=== PATIENT | male | born 2000 | race Caucasian/White ===

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

== ENCOUNTER 2021-11-14 20:30 | Inpatient (IN) | payer OTHER, MEDICAID, SELFPAY ==
[2021-11-14 20:35] VITALS: BP 112/69; PULSE 88; RESP 20; TEMP 36.3; O2SAT 97; BMI 17.9
--- NOTE | 2021-11-14 20:42 | DI.RAD.S_ITS ---
PROCEDURE: XR CHEST 2V INDICATIONS: Shooting pains on inspiration TECHNIQUE: 2 views of the chest were acquired. COMPARISON: [facility], , XR CHEST 1V, 10/02/2019, 23:36. FINDINGS: Surgical changes and devices: None. Lungs and pleura: There is a moderate-sized right pneumothorax measuring up to 5.2 cm at the apex. The lungs are clear. No left pneumothorax. No pleural effusions. Mediastinum: There is mild leftward mediastinal shift. Heart size is normal. Bones and chest wall: No displaced fractures identified. No suspicious bony abnormalities. Soft tissues appear unremarkable. IMPRESSION: 1. Moderate right pneumothorax with mild leftward shift of the mediastinum suggestive of developing tension. Findings discussed with Dr. Salas on 11/14/2021 at 9:10 p.m.. Dictated by: Antolin Montoya M.D. on 11/14/2021 at 21:09 Approved by: Antolin Montoya M.D. on 11/14/2021 at 21:13
--- NOTE | 2021-11-14 20:57 | ED.CHESTPAIN ---
HPI - Chest Pain General Chief Complaint: Chest Pain Stated Complaint: rt sided pain with breathing Time Seen by Provider: 11/14/21 20:42 Source: patient Mode of arrival: Ambulatory Limitations: no limitations Limitations: no limitations Related Data Previous Rx's Medication Instructions Recorded lorazepam 0.5 mg tablet (Ativan) 0.5 mg PO BID PRN anxiety #10 tabs 10/03/19 Allergies Allergy/AdvReac Type Severity Reaction Status Date / Time Penicillins Allergy Severe Hives Verified 04/16/19 13:34 Review of Systems Review of Systems ROS Unobtainable: All systems reviewed & are unremarkable except as noted in HPI and below Patient History Medical History Depression Social History Smoking Status: Current every day smoker Smoking Status: Current every day smoker alcohol intake frequency: 0-2 drinks per day Substance Use Type: marijuana Exam Initial Vital Signs Initial Vital Signs: Vital Signs Temperature 97.4 F L 11/14/21 20:35 Pulse Rate 88 11/14/21 20:35 Respiratory Rate 20 11/14/21 20:35 Blood Pressure 112/69 11/14/21 20:35 Pulse Oximetry 97 11/14/21 20:35 Oxygen Delivery Method 11/14/21 20:35 Course Orders Ordered: ED Orders 11/14/21 20:42 Chest [XR chest 2V] Stat Vital Signs Vital signs: Vital Signs - 8 hr 11/14/21 20:35 Temperature 97.4 F L Pulse Rate 88 Respiratory Rate 20 Blood Pressure 112/69 Pulse Oximetry 97 Oxygen Delivery Method Room Air Discharge Plan Departure Prescriptions: No Action lorazepam [Ativan] 0.5 mg tablet 0.5 mg PO BID PRN (Reason: anxiety) Qty: 10 0RF
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
[2021-11-14 21:36] LABS: COVID19 -Nasal RAPID Negative (Negative)
--- NOTE | 2021-11-14 21:41 | PC.NURSE ---
Per provider, put patient on 15L NRB for management of pneumo.
[2021-11-14] MEDS: KETOROLAC 30 MG/ML VIAL 15 MG IV (21:44)
[2021-11-14 21:48] LABS: Add Manual Diff / Slide Review NO; Basophils Absolute Auto 200 /uL (0-100); Basophils Percent Auto 1.9 % (0-2); Eosinophils Absolute Auto 300 /uL (0-450); Eosinophils Percent Auto 3.6 % (2-4); Hematocrit 41.5 % (41-53); Hemoglobin 14.2 g/dL (13.5-17.5); Lymphocytes Absolute Auto 1400 /uL (1100-4500); Lymphocytes Percent Auto 16.2 % (25-40); Mean Corpuscular HGB Conc 34.2 % (30-36); Mean Corpuscular Volume 87.8 fL (80-100); Monocytes Absolute Auto 600 /uL (0-900); Monocytes Percent Auto 6.8 % (3-14); Neutrophils Absolute Auto 6000 /uL (1500-7000); Neutrophils Percent Auto 71.5 % (50-75); Platelet Count 221 X10^3/uL (150-400); Red Blood Cell Count 4.72 X10^6/uL (4.5-5.9); Red Cell Distribution Width 12.9 % (11.6-14.8); White Blood Cell Count 8.4 X10^3/uL (4.5-11.0)
[2021-11-14 21:56] LABS: Alanine Aminotransferase 10 IU/L (<50); Albumin 4.1 g/dL (3.5-5.0); Albumin Globulin Ratio 1.6 (1.0-2.8); Alkaline Phosphatase 65 U/L (38-126); Aspartate Aminotransferase 20 IU/L (17-59); BUN Creatinine Ratio 10.7 (6-22); Bilirubin Total 0.6 mg/dL (0.2-1.3); Blood Urea Nitrogen 8 mg/dL (9-20); Calcium 8.9 mg/dL (8.4-10.2); Carbon Dioxide 27 mmol/L (22-32); Chloride 105 mmol/L (98-107); Estimated Glomerular Filt Rate > 60 mL/min (>60); Globulin 2.6 g/dL (1.7-4.1); Glucose 139 mg/dL (70-100); HEMOLYSIS < 15 (0-50); Lipase 33 U/L (23-300); Potassium 3.9 mmol/L (3.4-5.1); Sodium 140 mmol/L (137-145); Total Protein 6.7 g/dL (6.3-8.2)
[2021-11-14 22:00] VITALS: BMI 16.8
[2021-11-14 22:15] VITALS: BP 117/69; PULSE 50; RESP 17; TEMP 36.8; O2SAT 99
[2021-11-14 22:20] VITALS: O2SAT 98
[2021-11-14] MEDS: GABAPENTIN 300 MG CAPSULE PO (22:21)
[2021-11-14] MEDS: OXYCODONE IR 5 MG TABLET PO (22:21)
[2021-11-14] MEDS: ACETAMINOPHEN 325 MG TABLET 650 MG PO (23:17)
[2021-11-15] VITALS (19 sets, daily range): BP systolic 88–103; BP diastolic 48–66; PULSE 44–92; RESP 9–18; TEMP 35.8–36.6; O2SAT 91–100
[2021-11-15] MEDS: KETOROLAC 30 MG/ML VIAL 15 MG IV ×4 (03:22→21:38)
[2021-11-15] MEDS: OXYCODONE IR 5 MG TABLET PO ×4 (03:29→23:45)
--- NOTE | 2021-11-15 05:30 | DI.RAD.S_ITS ---
PROCEDURE: XR CHEST 1V INDICATIONS: ptx TECHNIQUE: One view of the chest was acquired. COMPARISON: [facility], CR, XR CHEST 2V, 11/14/2021, 20:58. FINDINGS: Surgical changes and devices: None. Lungs and pleura: Large right-sided pneumothorax, increased compared to the prior study. No mediastinal shift to indicate tension. Left lung is clear. Medial right lung is atelectatic. Mediastinum: Mediastinal contours appear normal. Heart size is normal. Bones and chest wall: No suspicious bony lesions. Overlying soft tissues appear unremarkable. IMPRESSION: 1. Increased size of large right pneumothorax. No tension. 2. Final interpretation is concordant with preliminary report. 3. Nurse and hospitalist notified per technologist. Dictated by: Elyssa Juarez M.D. on 11/15/2021 at 8:56 Approved by: Elyssa Juarez M.D. on 11/15/2021 at 8:59
[2021-11-15] MEDS: GABAPENTIN 300 MG CAPSULE PO ×3 (05:58→21:39)
[2021-11-15] MEDS: ACETAMINOPHEN 325 MG TABLET 650 MG PO ×3 (05:58→23:46)
--- NOTE | 2021-11-15 07:08 | PC.NURSE ---
Per concrete technician, chest Xray looks worse, Dr Maxwell notified.
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
--- NOTE | 2021-11-15 10:09 | SUR.HOLD ---
called primary nurse to obtain update regarding patient. Per MILLIE Montero, patient has HR in the 50s and BP is 90/40s; patient has had little to no urine output. Notified Dr. Maxwell of events. Bolus of saline for one liter ordered as well as a bladder scan. Orders placed and relayed to inpatient nurse.
[2021-11-15] MEDS: LACTATED RINGERS 1,000 ML 1000 ML IV (10:40)
[2021-11-15] MEDS: MIDAZOLAM 5 MG/5 ML VIAL 2 MG IV (11:40)
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
[2021-11-15] MEDS: LIDOCAINE 1% (PF) 5 ML INJ (11:43)
[2021-11-15] MEDS: fentaNYL 100 MCG/2 ML INJ IV (11:46)
--- NOTE | 2021-11-15 12:00 | DI.RAD.S_ITS ---
PROCEDURE: XR CHEST 1V INDICATIONS: chest tube right TECHNIQUE: One view of the chest was acquired. COMPARISON: [facility], CT, CT ANGIO CHEST ABDOMEN PELVIS, 09/06/2021, 1:10. [facility], CR, XR CHEST 1 VIEW, 09/05/2021, 21:36. [facility], CR, XR CHEST 2V, 11/14/2021, 20:58. [facility], CR, XR CHEST 1V, 11/15/2021, 6:51. FINDINGS: Surgical changes and devices: There is a right-sided pleural drain placed. Lungs and pleura: A right-sided pneumothorax is seen, which is slightly improved compared to the prior examination. Mediastinum: Mediastinal contours appear normal. Heart size is normal. Bones and chest wall: No suspicious bony lesions. Overlying soft tissues appear unremarkable. IMPRESSION: Interval placement of a right-sided pleural drain, with slightly improved right-sided pneumothorax. Dictated by: Ari Chapman M.D. on 11/15/2021 at 11:31 Approved by: Ari Chapman M.D. on 11/15/2021 at 11:32
--- NOTE | 2021-11-15 12:03 | PM.OP.1 ---
Operative Date/Time/Diagnoses Date of procedure: 11/15/21 Time of procedure: 12:03 Pre-op diagnosis: Spontaneous right pneumothorax Post-op diagnosis: same Procedure & Clinicians Procedure: Right-sided Jason tube Same procedure as scheduled: Yes Indications: Spontaneous right pneumothorax Surgeon: Alina Maxwell Anesthesia Type: Sedation Operative Notes Findings: Prep diagnosis: Right-sided spontaneous pneumothorax. Postop diagnosis: Same Procedure: Right-sided pigtail chest tube ?Jason? Surgeon: Jordyn Maxwell MD Anesthetic: Local, fentanyl 100 mcg, Versed 3 mg Findings: Normal anatomy, thin young male Procedure: Patient placed in a supine position. Prepped and draped in sterile fashion to expose his right lateral chest wall. Local anesthetic was used to inject along the 5th intercostal space. I then tunneled up to the 4th intercostal space and with the hollow needle was able to access the chest cavity withdrawing air at the time of entry. A wire was placed and Seldinger technique was used to carry out the placement of a pigtail catheter into the right chest wall. This was immediately hooked to suction. Was then covered with the sterile dressings and sutured to the skin prior to that with the 3-0 silk suture. Dressings were placed and patient was awaken, taken to recovery room in stable condition. Specimen: None Blood loss: 2 mL Applied: device(s) (Jason pigtail catheter) Estimated Blood Loss (mL): 2 Blood products transfused: none Procedure in detail: See findings Post-operative Condition: stable Disposition: PACU
--- NOTE | 2021-11-15 12:05 | PC.NURSE ---
Pt VSS, afebrile, HR elder 40's-50's this a.m. and overnight. Pt soundly sleeping but easily awakened,moaning and nodding he is ok. He is on Non Rebreather 15 L , 100% 02 saturation. He initially denies pain and reports he feel much better than the previous day, however with movement his pain to R side of chest increases. He had not voided overnight, and bladder scan revealed 550cc. He was able to void 650 cc dark yellow colored urine. LR one liter bolus administered per MD orders. Patient transported via w/ch to preop.
--- NOTE | 2021-11-15 12:21 | SUR.OPER ---
no anesthesia during procedure [facility] would not allow to save without anesthesia in time. Please see conscious sedation work flow.
--- NOTE | 2021-11-15 17:07 | PC.NURSE ---
Pt back from CT insertion procedure at 1250, initially sleepy and wanting to sleep about two hours but awakening yelling out in pain. Reports 9/[address] insertion site, and difficult to assess lung sounds as he does states it is painful to take deep inspirations. He is given prn and scheduled pain medications with good effect, falling back to sleep. He has a poor appetite without much intake today.VSS, with soft BP's and HR 50's, 02 saturation remains 96-98% on RA.
--- NOTE | 2021-11-15 21:57 | DI.RAD.S_ITS ---
PROCEDURE: XR CHEST 1V INDICATIONS: chest tube placement TECHNIQUE: One view of the chest was acquired. COMPARISON: [facility], CT, CT ANGIO CHEST ABDOMEN PELVIS, 09/06/2021, 1:10. [facility], CR, XR CHEST 2V, 11/14/2021, 20:58. [facility], CR, XR CHEST 1V, 11/15/2021, 6:51. [facility], CR, XR CHEST 1V, 11/15/2021, 12:07. FINDINGS: Surgical changes and devices: There is a right-sided pleural drain. Lungs and pleura: No remaining pneumothorax is seen on this study. The lungs appear clear. Mediastinum: Mediastinal contours appear normal. Heart size is normal. Bones and chest wall: No suspicious bony lesions. Overlying soft tissues appear unremarkable. IMPRESSION: No remaining right-sided pneumothorax seen by plain film. Right-sided pleural drain again seen. Dictated by: Ari Chapman M.D. on 11/15/2021 at 21:50 Approved by: Ari Chapman M.D. on 11/15/2021 at 21:51
[2021-11-15] MEDS: ALPRAZolam 0.5 MG TABLET PO (22:13)
--- NOTE | 2021-11-15 22:16 | PC.NURSE ---
~2200 patient called out writhing in pain, saying he all of a sudden had sharp pain and can't lift his R arm from how bad the pain was in his right side. Chest tube patent, no leak, on continuous suction, serosanguinous drainage in container. Patient given all PRN's and scheduled medication and he still was c/o 10/[address] Maxwell called for update. Xanax and a STAT CXR ordered.
[2021-11-16] VITALS (8 sets, daily range): BP systolic 97–125; BP diastolic 53–73; PULSE 46–69; RESP 16–18; TEMP 36.4–36.8; O2SAT 96–99
[2021-11-16] MEDS: KETOROLAC 30 MG/ML VIAL 15 MG IV (03:02)
--- NOTE | 2021-11-16 05:00 | DI.RAD.S_ITS ---
PROCEDURE: XR CHEST 1V INDICATIONS: right chest tube TECHNIQUE: One view of the chest was acquired. COMPARISON: [facility], , XR CHEST 1V, 11/15/2021, 22:05. [facility], CR, XR CHEST 1V, 11/15/2021, 12:07. FINDINGS: Surgical changes and devices: Right pleural drain in place. Lungs and pleura: No significant pneumothorax. No pleural effusion. Lungs are clear. Mediastinum: Mediastinal contours appear normal. Heart size is normal. Bones and chest wall: No suspicious bony lesions. Overlying soft tissues appear unremarkable. IMPRESSION: Right chest tube in place. No appreciable pneumothorax. Dictated by: Estevan Morgan M.D. on 11/16/2021 at 7:16 Approved by: Esteavn Morgan M.D. on 11/16/2021 at 7:17
[2021-11-16] MEDS: GABAPENTIN 300 MG CAPSULE PO ×3 (05:34→21:43)
[2021-11-16] MEDS: OXYCODONE IR 5 MG TABLET PO ×4 (05:34→21:43)
[2021-11-16] MEDS: ACETAMINOPHEN 325 MG TABLET 650 MG PO ×4 (05:34→23:17)
--- NOTE | 2021-11-16 10:11 | PM.PN.1 ---
Subjective Subjective Date Patient Seen: 11/16/21 Time Patient Seen: 10:11 Interval history: Sleeping, not interested in waking up. Exam Vital Signs (past 8 hours): - 11/16/21 03:13 11/16/21 08:10 Temperature 97.5 F L 97.9 F Pulse Rate 50 L 50 L Respiratory Rate 18 16 Blood Pressure 97/53 L 102/59 L Pulse Oximetry 96 97 Oxygen Flow Rate 0 0 Oxygen Delivery Method Room Air Oxygen Flow Rate 0 Const General: comfortable Nutritional Appearance: thin HENMT Head: normocephalic and atraumatic Neck Neck: trachea midline Chest Chest: normal inspection of the chest Other: right sided chest tube on suction. Resp Effort & Inspection: normal respiratory effort and able to speak in complete sentences Cardio Rate: bradycardic Rhythm: regular rhythm GI Inspection: normal to inspection Palpation: soft Skin General: turgor normal Extrem Right upper extremity: normal to inspection Objective Labs Result Diagrams: 11/14/21 21:37 11/14/21 21:37 [facility] Medical History Depression Social History household members: none Smoking Status: Current every day smoker alcohol intake: former Assessment & Plan Assessment & Plan narrative: Spontaneous Right PTX responded to chest tube placement. Plan: Remove suction and repeat CXR either later today or in am for potential chest tube removal. social work for homelessness COVID-19 COVID-19 status: Negative Time Spent With Patient Critical Care time: I spent a total of [] minutes of critical care time on this patient's care today; this time is exclusive of procedural time. Quality VTE Deep Vein Thrombosis/Pulmonary Embolism Present on Admission: No
--- NOTE | 2021-11-16 13:13 | CM.DPNOTE ---
DCP Note Brief visit this morning at patient's bedside, patient pleasant but doesn't open his eyes Patient states he will drive himself to his friends house in [facility], states he doesn't have access to food routinely. Strongly encouraged patient to apply for food stamps Patient denies ETOH and illicit drug use, denies needs from this SURVEY COORDINATOR JW
[2021-11-16] MEDS: NICOTINE 21 MG PATCH TOP (13:19)
[2021-11-16] MEDS: NAPROXEN 250 MG TABLET 500 MG PO (16:34)
[2021-11-16] MEDS: ALPRAZolam 0.5 MG TABLET PO (23:17)
[2021-11-17] MEDS: ACETAMINOPHEN 325 MG TABLET 650 MG PO (06:28)
[2021-11-17] MEDS: GABAPENTIN 300 MG CAPSULE PO (06:28)
[2021-11-17 07:54] VITALS: BP 98/60; PULSE 58; RESP 16; TEMP 36.2; O2SAT 100
[2021-11-17 09:09] VITALS: O2SAT 100
--- NOTE | 2021-11-17 09:59 | DI.RAD.S_ITS ---
PROCEDURE: XR CHEST 1V INDICATIONS: chest tube removed TECHNIQUE: One view of the chest was acquired. COMPARISON: [facility], CR, XR CHEST 1V, 11/16/2021, 6:41. FINDINGS: Surgical changes and devices: Right-sided pigtail pleural drain has been removed. No recurrent or residual pneumothorax. Lungs and pleura: Lungs are clear. No pleural effusions or pneumothorax. Mediastinum: Mediastinal contours appear normal. Heart size is normal. Bones and chest wall: No suspicious bony lesions. Overlying soft tissues appear unremarkable. IMPRESSION: No acute cardiopulmonary findings. No pneumothorax. Approved by: Cruz Fernandez M.D. on 11/17/2021 at 10:38
--- NOTE | 2021-11-17 09:59 | PM.PN.1 ---
Subjective Subjective Date Patient Seen: 11/17/21 Time Patient Seen: 09:59 Interval history: No issues over night. Exam Vital Signs (past 8 hours): - 11/17/21 07:54 11/17/21 09:09 Temperature 97.1 F L Pulse Rate 58 L Respiratory Rate 16 Blood Pressure 98/60 Pulse Oximetry 100 100 Oxygen Delivery Method Room Air Oxygen Flow Rate 0 Oxygen Delivery Method Room Air Oxygen Flow Rate 0 Narrative Exam Narrative: No respiratory distress, chest tube back to wall suction. Objective Labs Result Diagrams: 11/14/21 21:37 11/14/21 21:37 [facility] Medical History Depression Social History household members: none Smoking Status: Current every day smoker alcohol intake: former Assessment & Plan Assessment & Plan narrative: Chest tube removed. will repeat CXR and if appropriate, discharge today. COVID-19 COVID-19 status: Negative Time Spent With Patient Critical Care time: I spent a total of [] minutes of critical care time on this patient's care today; this time is exclusive of procedural time. Quality VTE Deep Vein Thrombosis/Pulmonary Embolism Present on Admission: No
[2021-11-17] MEDS: NICOTINE 21 MG PATCH TOP (10:03)
[2021-11-17] MEDS: NAPROXEN 250 MG TABLET 500 MG PO (10:04)
--- NOTE | 2021-11-17 10:44 | PC.NURSE ---
Dr. Maxwell in room, chest tube removed. Patient tolerated well. Patient happy to be up and mobile in room. Aware that we are now awaiting results of what chest xray shows before new plan is set. Patient agreeable to plan. Patient up to edge of bed, eating snack. Got dressed without help from staff.
--- NOTE | 2021-11-17 11:51 | P.DS_ITS ---
History of Present Illness History of Present Illness Date Patient Seen: 11/17/21 Time Patient Seen: 11:51 Chief complaint: rt sided pain with breathing Narrative: Acute onset chest pain yesterday. Did not improve over the day and presented to ED. CXR confirms PTX of right lung. On prior episode associated with trauma. PTX increased in size overnight w/o chest tube, He is o/w stable. Chest tube placed, 24hours of suction prior to removal. No Ptx on CXR after removal ok to discharge. No contact sports, heavy lifting (>15lbs) for 2 weeks, stop smoking anything. Discharge Providers Provider Date of admission: 11/14/21 21:23 Discharge Date: 11/17/21 Consults: 11/14/21 21:30 Consult to Respiratory Therapy Evaluate & Treat Comment: pulmonary toilet Physician Instructions: Evaluate and treat Discharge provider: Alina Maxwell MD Summary Hospital Course Discharge Diagnosis: Spontaneous right pneumothorax Hospital Course: Attempted conservative management that failed. Chest tube placed with successful resolution of PTX Status at Discharge Cognitive/behavioral status at discharge: at baseline, oriented Functional status at discharge: independent ambulation Overall status at discharge: patient is progressing back to baseline Time Spent with Patient Time spent: Greater than 30 minutes Exam Vital Signs (past 8 hours): - 11/17/21 07:54 11/17/21 09:09 Temperature 97.1 F L Pulse Rate 58 L Respiratory Rate 16 Blood Pressure 98/60 Pulse Oximetry 100 100 Oxygen Delivery Method Room Air Oxygen Flow Rate 0 Oxygen Delivery Method Room Air Oxygen Flow Rate 0 Narrative Exam Narrative: wound has no infection. No PTX on CXR after removal of chest tube. Objective Labs Result Diagrams: 11/14/21 21:37 11/14/21 21:37 [facility] Medical History Depression Social History household members: none Smoking Status: Current every day smoker alcohol intake: former Discharge Assessment & Plan Assessment and Plan Assessment: spontaneous PTX resolved with chest tube Plan of Treatment: No heavy lifting/straining/or contact sports for 2 weeks. Follow up prn. return to ER if pain recurs. Discharge Plan Discharge Plan Patient Disposition: Home Discharge orders & Medications Prescriptions: New acetaminophen 325 mg Tablet 650 mg PO Q6HR Qty: 30 0RF naproxen 250 mg Tablet 500 mg PO BIDWM Qty: 60 0RF oxycodone 5 mg Tablet 5 mg PO Q4HR PRN (Reason: Pain, Severe (7-10)) Qty: 10 0RF Diet/Activity/Treatments Diet: Diet as Tolerated Activity: no heavy lifting (>15 lbs) for 2 weeks. Skin/Wound/Dressing Care Report to your healthcare provider any signs of infection, such as:: increased pain Dressing: change in 48 hours. Visit Report/Discharge Packet Instructions: Pneumothorax, [facility]: Wound Care Stand Alone Forms: Surgery Discharge Quality VTE Deep Vein Thrombosis/Pulmonary Embolism Present on Admission: No
--- NOTE | 2021-11-18 10:12 | SUR.PHASEI ---
no anesthesia involved for this case
== END 2021-11-17 13:04 | disposition home or self-care (01) | DRG 143 ==
LOC: ED 20:42 → AC 22:05
PROVIDERS: Admitting Provider Surgery; Emergency Provider Emergency Medicine; Visit Provider Surgery
PROC: 0W9930Z Drainage of Right Pleural Cavity with Drainage Device, Percutaneous Approach (ICD-10-PCS; CPT 32551; principal; 2021-11-15 13:30)
DX: J93.83 Other pneumothorax (principal); F17.210 Nicotine dependence, cigarettes, uncomplicated; Z59.02 Unsheltered homelessness; Z20.822 Contact with and (suspected) exposure to COVID-19
CPT/HCPCS: 32551; 36415; 71045; 71046; 80053; 83690; 85025; 87635; 94760; 99221; 99231; 99238; 99284; C9803; J1885; J2250; J3010

== ENCOUNTER 2021-12-18 14:10 | Inpatient (IN) | payer OTHER, MEDICAID, SELFPAY ==
[2021-12-18] VITALS (38 sets, daily range): BP systolic 105–137; BP diastolic 58–82; PULSE 53–122; RESP 12–59; TEMP 36.4–36.8; O2SAT 94–100; BMI 17.2
--- NOTE | 2021-12-18 14:30 | DI.RAD.S_ITS ---
PROCEDURE: XR CHEST 1V INDICATIONS: chest pain history of collapsed lung TECHNIQUE: One view of the chest was acquired. COMPARISON: [facility], CR, XR CHEST 1V, 11/17/2021, 10:22. [facility], CR, XR CHEST 1V, 11/16/2021, 6:41. FINDINGS: Surgical changes and devices: None. Lungs and pleura: Large right pneumothorax. Left lung is clear. Mediastinum: Mild right to left mediastinal shift. Heart size is normal. Bones and chest wall: No suspicious bony lesions. Overlying soft tissues appear unremarkable. IMPRESSION: Large right pneumothorax with mild [id number] mediastinal shift. Results discussed with Dr. Gomez by Dr. Stovall at 1535 hours on 12/18/2021. Dictated by: Jenaro Stovall M.D. on 12/18/2021 at 15:31 Approved by: Jenaro Stovall M.D. on 12/18/2021 at 15:37
--- NOTE | 2021-12-18 14:59 | DI.RAD.S_ITS ---
PROCEDURE: XR CHEST 1V INDICATIONS: post chest tube TECHNIQUE: One view of the chest was acquired. COMPARISON: [facility], CR, XR CHEST 1V, 12/18/2021, 14:27. [facility], CR, XR CHEST 1V, 11/17/2021, 10:22. FINDINGS: Surgical changes and devices: Interval placement of a right chest tube projecting over the right lower lung. Lungs and pleura: Significant interval decrease in size of the right pneumothorax post chest tube placement. Small right apical pneumothorax persists, approximately 21 millimeters pleural separation. Mediastinum: Interval decrease or resolution of right to left mediastinal shift. Heart size is normal. Bones and chest wall: No suspicious bony lesions. Overlying soft tissues appear unremarkable. IMPRESSION: Significant interval decrease in size of the right pneumothorax post chest tube placement. A small right apical pneumothorax persists. Dictated by: Jenaro Stovall M.D. on 12/18/2021 at 15:52 Approved by: Jenaro Stovall M.D. on 12/18/2021 at 15:56
[2021-12-18] MEDS: MIDAZOLAM 2 MG/2 ML VIAL IV (15:07)
[2021-12-18] MEDS: fentaNYL 100 MCG/2 ML INJ IV (15:07)
[2021-12-18 15:25] LABS: COVID19 -Nasal RAPID Negative (Negative)
[2021-12-18] MEDS: LIDOCAINE 2% W/EPI INJ 20 ML (15:37)
--- NOTE | 2021-12-18 15:39 | ED_ITS ---
HPI - Chest Pain General Chief Complaint: Chest Pain Stated Complaint: Hx collapsed lung 1mo ago, having similar symptoms Time Seen by Provider: 12/18/21 14:56 Source: patient Mode of arrival: Ambulatory Limitations: no limitations History of Present Illness HPI narrative: 21-year-old gentleman presents with acute right-sided chest pain feels exactly like his prior to spontaneous pneumothorax is. He was smoking a cigarette felt a pop increasing pain increasingly uncomfortable and increasingly short of breath. His last chest tube was on November 15. His 1st pneumothorax was treated conservatively. He reports no recent fevers, cough, chills, palpitations, abdominal pain, vomiting, diarrhea, lower extremity edema, orthopnea. Related Data Previous Rx's Medication Instructions Recorded acetaminophen 325 mg tablet 650 mg PO Q6HR #30 tabs 11/17/21 naproxen 250 mg tablet 500 mg PO BIDWM #60 tabs 11/17/21 oxycodone 5 mg tablet 5 mg PO Q4HR PRN Pain, Severe 11/17/21 (7-10) #10 tabs Allergies Allergy/AdvReac Type Severity Reaction Status Date / Time Penicillins Allergy Severe Hives Verified 04/16/19 13:34 Review of Systems Review of Systems Narrative: Remainder of complete review of systems is otherwise unremarkable except for that included in the HPI. Patient History Medical History (Updated 12/18/21 @ 18:23 by Daniela Gomez MD) Depression Pneumothorax Social History household members: none Smoking Status: Current every day smoker alcohol intake: former Smoking Status: Current every day smoker tobacco type: cigarettes alcohol intake frequency: 0-2 drinks per day Substance Use Type: does not use Exam Initial Vital Signs Initial Vital Signs: Vital Signs Temperature 98.3 F 12/18/21 14:27 Pulse Rate 122 H 12/18/21 14:27 Respiratory Rate 24 12/18/21 14:27 Blood Pressure 116/73 12/18/21 14:27 Pulse Oximetry 98 12/18/21 14:27 Oxygen Delivery Method 12/18/21 14:27 General: Healthy appearing, quite thin, in moderate pain but Able to give a complete and coherent history while speaking in complete sentences. Well- nourished well-developed HEENT: Moist mucous membranes, normal sclera with reactive pupils, Respiratory: Lungs decreased breath sounds on the right, no wheezing appreciated on the left. Cardiac: Tachycardic with regular rhythm no murmurs no bruits Abdomen: Soft, nontender, good bowel tones, no flank pain Skin: Warm and dry, no rashes Neurologic: Grossly neurologically intact with no obvious asymmetries or abnormalities Extremities: No trauma, well perfused Psych: Cooperative, appropriate insight and affect Procedures Chest Tube Chest Tube 1: Time of procedure: 15:42 Chest Tube Location: right and mid axillary line Chest Tube Prep: Yes sterile drapes applied (Chlorhexidine prep) Local Anesthetic: lidocaine 2% and with epi Amount of anesthesia used (mL): 4 Incision Made With: #11 blade Post Procedure: sutured to skin and sterile dressing applied Tube Drainage: other (Air) Post Procedure CXR?: Yes Patient Tolerated Procedure: Yes Progress: Jason pigtail catheter was used Procedural Sedation Time of procedure: 15:44 Time out performed: Yes Indication: other (Urgent right-sided chest tube placement with developing tension physiology) ASA Class: I Mallampati Airway Classification: Class I Time of Last PO Intake: 22:00 Preparation: court recording monitor applied, pulse oximeter, capnometry used, s upplemental O2 applied, suction/airway equipment at bedside and IV secured Fentanyl: IV Fentanyl dose (mcg): 50 Midazolam: IV Midazolam dose (mg): 2 Intraservice time/total sedation time (min): 20 ED Sedation Level: Moderate (Concious) Complications: none Course Orders Ordered: ED Orders 12/18/21 14:30 Chest [XR chest 1V] Stat 12/18/21 14:59 CXR [XR chest 1V] Stat 12/18/21 15:02 COVID19 -Nasal RAPID/Pre-Proc Stat 12/18/21 16:16 CT chest w con Stat Acetaminophen (Acetaminophen 325 Mg Tablet) 650 mg PO Q6HR PRN PRN Reason: pain Last Admin: 12/18/21 17:50 Dose: 650 mg Documented By: STARLA Alprazolam (Alprazolam 0.5 Mg Tablet) 0.5 mg PO Q6H PRN PRN Reason: Anxiety Celecoxib (Celecoxib 200 Mg Capsule) 200 mg PO BID DAVID Gabapentin (Gabapentin 300 Mg Capsule) 300 mg PO BEDTIME DAVID Heparin Sodium (Porcine) (Heparin 5,000 Unit/Ml Vial) 5,000 unit SUBCUT BID COUNT INCLUDES THE [facility] Oxycodone HCl (Oxycodone Er 10 Mg Tab) 5 mg PO Q3HR PRN PRN Reason: severe pain Last Admin: 12/18/21 17:50 Dose: 5 mg Documented By: STARLA Discontinued Medications Fentanyl (Fentanyl 100 Mcg/2 Ml Inj) 100 mcg IV NOW ONE Stop: 12/18/21 14:59 Last Admin: 12/18/21 15:07 Dose: 100 mcg Documented By: DRAGAN Midazolam HCl (Midazolam 2 Mg/2 Ml Vial) 2 mg IV NOW ONE Stop: 12/18/21 14:59 Last Admin: 12/18/21 15:07 Dose: 2 mg Documented By: DRAGAN Vital Signs Vital signs: Vital Signs - 8 hr 12/18/21 14:27 12/18/21 14:45 12/18/21 14:37 Temperature 98.3 F Pulse Rate 122 H 110 H 117 H Respiratory Rate 24 14 23 Blood Pressure 116/73 137/82 Pulse Oximetry 98 95 Oxygen Delivery Method Room Air Room Air 12/18/21 14:38 12/18/21 14:38 12/18/21 14:40 Temperature Pulse Rate 116 H 112 H Respiratory Rate 24 19 Blood Pressure 137/82 Pulse Oximetry 96 97 Oxygen Delivery Method 12/18/21 14:45 12/18/21 14:50 12/18/21 14:55 Temperature Pulse Rate 110 H 114 H 109 H Respiratory Rate 13 13 14 Blood Pressure Pulse Oximetry 98 98 98 Oxygen Delivery Method 12/18/21 15:00 12/18/21 15:05 12/18/21 15:10 Temperature Pulse Rate 118 H 115 H 103 H Respiratory Rate 21 16 27 H Blood Pressure Pulse Oximetry 98 98 99 Oxygen Delivery Method 12/18/21 15:15 12/18/21 15:15 12/18/21 15:20 Temperature Pulse Rate 105 H Respiratory Rate 59 H Blood Pressure 110/66 108/62 Pulse Oximetry 98 Oxygen Delivery Method 12/18/21 15:20 12/18/21 15:25 12/18/21 15:25 Temperature Pulse Rate 91 H 110 H Respiratory Rate 29 H 21 Blood Pressure 119/70 Pulse Oximetry 94 98 Oxygen Delivery Method 12/18/21 15:30 12/18/21 15:30 12/18/21 16:12 Temperature Pulse Rate 111 H 104 H Respiratory Rate 15 16 Blood Pressure 105/64 Pulse Oximetry 100 Oxygen Delivery Method 12/18/21 15:35 12/18/21 15:35 12/18/21 15:40 Temperature Pulse Rate 97 H Respiratory Rate 22 Blood Pressure 126/81 112/67 Pulse Oximetry 100 Oxygen Delivery Method 12/18/21 15:40 12/18/21 15:45 12/18/21 15:45 Temperature Pulse Rate 84 74 Respiratory Rate 18 15 Blood Pressure 117/69 Pulse Oximetry 100 98 Oxygen Delivery Method 12/18/21 15:50 12/18/21 15:50 12/18/21 15:55 Temperature Pulse Rate 74 Respiratory Rate 13 Blood Pressure 117/70 114/70 Pulse Oximetry 98 Oxygen Delivery Method 12/18/21 15:55 12/18/21 16:00 12/18/21 16:00 Temperature Pulse Rate 68 71 Respiratory Rate 12 13 Blood Pressure 119/73 Pulse Oximetry 100 100 Oxygen Delivery Method 12/18/21 16:05 12/18/21 16:05 12/18/21 16:10 Temperature Pulse Rate 72 Respiratory Rate 13 Blood Pressure 118/70 114/75 Pulse Oximetry 100 Oxygen Delivery Method 12/18/21 16:10 12/18/21 16:15 12/18/21 16:15 Temperature Pulse Rate 70 68 Respiratory Rate 12 13 Blood Pressure 109/69 Pulse Oximetry 100 100 Oxygen Delivery Method MDM - Chest Pain Lab Data Labs: Lab Results 12/18/21 Range/Units 15:02 SARS-CoV-2 (PCR) Negative (Negative) Imaging Data Chest x-ray pre and post chest tube: Radiologist's Impression: FINDINGS:? ? Surgical changes and devices:? None.? ? Lungs and pleura:? Large right pneumothorax.? Left lung is clear. ? Mediastinum:? Mild right to left mediastinal shift.? Heart size is normal.? ? Bones and chest wall:? No suspicious bony lesions.? Overlying soft tissues appear unremarkable.? ? IMPRESSION:? Large right pneumothorax with mild [id number] mediastinal shift. ? ? Results discussed with Dr. Gomez by Dr. Stovall at 1535 hours on 12/18/2021. ? Dictated by: Jenaro Stovall M.D. on 12/18/2021 at 15:31 ? ? MDM Narrative Medical decision making narrative: 21-year-old gentleman with recurrent spontaneous pneumothorax on the right side. He states he was smoking a cigarette felt a pop progressive pain and dyspnea. Initial chest x-ray shows a large pulmonary embolism with developing tension physiology. A Jason catheter is placed into the right pleural space without complication and very satisfying large release of air at time of placement. Care is reviewed with Dr. Maxwell who will admit the patient. As this is his 3rd event she also requested a chest CT and he likely will need outpatient referral to cardiothoracic surgery for recurrent episodes of pneumothorax. He has tolerated his sedation well as quite comfortable questions are answered he is safe for transfer to the floor Discharge Plan Departure Patient Disposition: Admitted as Observation Clinical Impression: Pneumothorax Admit Date/Time: 12/18/21 16:17 Admit Provider: Alina Maxwell
--- NOTE | 2021-12-18 15:57 | PC.NURSE ---
Patient laying back on gurney, resting with eyes closed. Chest tube in place and connected to suction. Patient denies any pain at this point in time. Respirations equal, regular and unlabored. Will continue to monitor.
--- NOTE | 2021-12-18 16:16 | DI.CT.S_ITS ---
PROCEDURE: CT CHEST W CON INDICATIONS: recurrent spont pneumo (third one today) TECHNIQUE: After the administration of intravenous contrast, 5 mm thick sections acquired from the pulmonary apices to the posterior costophrenic angles. 1 mm axial lung, 5 mm thick coronal and sagittal reformats and 7 mm axial MIP were acquired. For radiation dose reduction, the following was used: automated exposure control, adjustment of mA and/or kV according to patient size. COMPARISON: [facility], CR, XR CHEST 1V, 12/18/2021, 15:22. [facility], CT, CT ANGIO CHEST ABDOMEN PELVIS, 09/06/2021, 1:10. FINDINGS: Image quality: Excellent. Lungs and pleura: Right chest tube present at the inferior pleural space. Small-moderate right pneumothorax as on recent chest radiographs. Small blebs present at the right lung apex, largest measuring 8 millimeters (3/48). No large bullae visualized. No consolidation. No pleural effusion. Mediastinum: Heart size is normal. No pericardial effusion. No mediastinal or hilar adenopathy by size criteria. Thoracic aorta and central pulmonary arteries are normal in size. Esophagus is normal in caliber. No hiatal hernia. Bones and chest wall: No suspicious bony lesions. No vertebral body compression fractures. No axillary or supraclavicular adenopathy by size criteria. Abdomen: Visualized upper abdominal solid organs appear normal. Upper abdominal bowel loops are normal in caliber. IMPRESSION: 1. Small-moderate right pneumothorax with right chest tube in place. 2. A few small right apical blebs are present. No large bullae visualized. Dictated by: Jenaro Stovall M.D. on 12/18/2021 at 17:07 Approved by: Jenaro Stovall M.D. on 12/18/2021 at 17:23
[2021-12-18] MEDS: ACETAMINOPHEN 325 MG TABLET 650 MG PO (17:50)
[2021-12-18] MEDS: OXYCODONE ER 10 MG TAB 5 MG PO ×2 (17:50→21:30)
[2021-12-18] MEDS: ALPRAZolam 0.5 MG TABLET PO (18:53)
[2021-12-18] MEDS: CELECOXIB 200 MG CAPSULE PO (21:29)
[2021-12-18] MEDS: HEPARIN 5,000 UNIT/ML VIAL 5000 UNIT SUBCUT (21:29)
[2021-12-18] MEDS: GABAPENTIN 300 MG CAPSULE PO (21:29)
[2021-12-19 04:00] VITALS: BP 105/52; PULSE 51; RESP 16; TEMP 36.2; O2SAT 96
--- NOTE | 2021-12-19 05:00 | DI.RAD.S_ITS ---
PROCEDURE: XR CHEST 1V INDICATIONS: ptx TECHNIQUE: One view of the chest was acquired. COMPARISON: [facility], , XR CHEST 1V, 12/19/2021, 7:42. [facility], CR, XR CHEST 1V, 12/18/2021, 15:22. FINDINGS: Surgical changes and devices: Right-sided pigtail catheter chest tube is in unchanged position. Lungs and pleura: Right-sided pneumothorax is unchanged compared to 12/18/2021. Mediastinum: Mediastinal contours appear normal. Heart size is normal. No mediastinal shift Bones and chest wall: No suspicious bony lesions. Overlying soft tissues appear unremarkable. IMPRESSION: Right pneumothorax is unchanged compared to 12/18/2021. Comment: Final report is concordant with preliminary interpretation by [facility] Dictated by: Roland Berg M.D. on 12/19/2021 at 8:26 Approved by: Roland Berg M.D. on 12/19/2021 at 8:27
[2021-12-19] MEDS: OXYCODONE ER 10 MG TAB 5 MG PO (05:39)
[2021-12-19] MEDS: ACETAMINOPHEN 325 MG TABLET 650 MG PO (06:53)
[2021-12-19] MEDS: OXYCODONE IR 5 MG TABLET PO ×3 (06:53→17:52)
[2021-12-19 07:00] VITALS: O2SAT 96
--- NOTE | 2021-12-19 07:38 | PC.NURSE ---
Dr Maxwell notified of chest Xray results, CT cart put outside pt's room as requested. Cxycodone pain med clarified and new order for Oxycodone IR received.
--- NOTE | 2021-12-19 07:44 | DI.RAD.S_ITS ---
PROCEDURE: XR CHEST 1V INDICATIONS: ptx TECHNIQUE: One view of the chest was acquired. COMPARISON: [facility], CR, XR CHEST 1V, 12/19/2021, 4:59. FINDINGS: Surgical changes and devices: None. Lungs and pleura: Right-sided chest tube demonstrates interval expansion compared to the prior x-ray on 12/19/2021 Mediastinum: Mediastinal contours appear normal. Heart size is normal. Bones and chest wall: No suspicious bony lesions. Overlying soft tissues appear unremarkable. IMPRESSION: 1. Right chest tube is in unchanged position. 2. Pneumothorax demonstrates interval expansion compared to 12/18/2021 but still measures approximately 50 percent of lung volume. Comment: Final report is concordant with preliminary interpretation by [facility] Dictated by: Roland Berg M.D. on 12/19/2021 at 8:23 Approved by: Roland Berg M.D. on 12/19/2021 at 8:26
--- NOTE | 2021-12-19 07:49 | P.HP_ITS ---
History of Present Illness History of Present Illness Date Patient Seen: 12/19/21 Time Patient Seen: 07:49 Date of Onset of Symptoms: 12/18/21 Chief complaint: Hx collapsed lung 1mo ago, having similar symptoms Narrative: Recurrent symptoms of SOB and sharp 8/10 chest pain. Seen in ED with w/o consistent with recurrent spontaneous PTX (this is his third). Chest CT that I reviewed showed small anterior rim of PTX but predominantly reinflated lung. I did not appreciate blebs. Patient History Medical History Depression Pneumothorax Family & Social History Social History: household members none Prior Living Arrangements Homeless Safety & Behavioral: Feels Safe in Current Yes Environment Been Physically Hurt or No Threatened By a Person Tobacco & Substance use: Tobacco type cigarettes,cigars Smoking Status Current every day smoker Smoking packs per day 1 alcohol intake current alcohol intake frequency 0-2 drinks per day Substance Use Type methamphetamine Meds Home Medications and Allergies Home Medications Medication Instructions Recorded Confirmed Type No Known Home Medications 12/18/21 12/18/21 History Allergies Allergy/AdvReac Type Severity Reaction Status Date / Time Penicillins Allergy Severe Hives Verified 04/16/19 13:34 Review of Systems Review of Systems ROS: Yes All systems reviewed with the patient and are negative except as otherwise documented Exam Vital Signs (past 8 hours): - 12/19/21 04:00 Temperature 97.1 F L Pulse Rate 51 L Respiratory Rate 16 Blood Pressure 105/52 L Pulse Oximetry 96 Oxygen Flow Rate 0 Oxygen Delivery Method Room Air Oxygen Flow Rate 0 Const General: cooperative and healthy appearing Nutritional Appearance: thin Orientation: alert, awake and oriented x3 [facility] Head: normocephalic and atraumatic Ears: hearing grossly normal bilaterally Eyes General: appearance normal, both eyes and all related structures Neck Neck: trachea midline Chest Chest: normal inspection of the chest Resp Effort & Inspection: normal respiratory effort and able to speak in complete sentences Auscultation: diminished lung sounds Other: no lung sounds or air leak on right chest. Chest tube in good standing externally Cardio Rate: regular rate Rhythm: regular rhythm GI Palpation: soft Skin General: no rashes or lesions noted and turgor normal Neuro General: patient alert, patient awake and patient oriented x3 Cognition: normal cognition Extrem General: full ROM Psych Mental Status: mental status grossly normal Attitude: cooperative Judgment: judgment good Objective Labs Labs: Laboratory Results - last 24 hr 12/18/21 15:02 SARS-CoV-2 (PCR) Negative Assessment & Plan Assessment & Plan narrative: Recurrent spontaneous PTX. Responded initially to Jason tube, morning Xray shows return of PTX. Plan: Chest tube pull back from position with good evidence of evacuation of air. Repeat CXR showed only slight decrease. Chest tube again pulled back and r etaped. CXR in 2-4 hours to give time to evacuate. Will need outpatient follow up with Dr. Cortez([facility]) for thoracic consult. COVID-19 COVID-19 status: Negative Time Spent With Patient Time with patient: 50 to 69 minutes with 50% spent counseling/coordinating care Critical Care time: I spent a total of [] minutes of critical care time on this patient's care today; this time is exclusive of procedural time.
--- NOTE | 2021-12-19 09:34 | CM.DANOTE ---
DCP: Case received, EMR reviewed and met with patient. Introduced self and role. Was able to get some information, limited, regarding patient's current living situation. DCP assessment completed with information currently available. Patient is a 21 year old male who admitted yesterday afternoon to the care of the hospitalist team. PCP: None. Payer: confirmed: [employer]/Medicaid. Patient came to the hospital via private vehicle secondary to feeling a pop in his lung, short of breath. According to notes, incident occurred while he was smoking a cigarette. He was last seen here in October with pneumothorax. Patient is diagnosed with pneumothorax, has chest tube currently in place. It is also noted that patient is homeless. Met with patient in his room. He is alert and oriented, sitting up in bed. Confirmed that he resides in his car, homeless. He has no primary care provider. Patient does smoke, has history of meth use. Asked him if he is interested in resources for shelters, did not give an immediate answer. Did speak to Marialuisa, mercerizer machine operator, and did confirm that patient does have food stamps. She is working on getting a plan for patient to have high protein diet in his car, and types of food recommended with food stamps. Will also consult with HEARING AND SPEECH ASSISTANT regarding shelters for patient. Will also see if there are providers that take patient's insurance, [facility]. P: DCP to continue to follow closely. Will give patient resources for homeless shelters, as well as information on providers. Kristin De La Cruz RN/Tire Center Supervisor Discharge Planning/Care Management CM Discharge Assessment Start: 12/19/21 09:33 Freq: Status: Active Protocol: Document 12/19/21 09:33 (Rec: 12/19/21 09:34 [id number]) Discharge Planning Assessment Assigned Assembler Truck Trailer Kristin De La Cruz RN/T[employer] Center Supervisor Advance Directives? No History Provided By Patient,Medical Record Prior Living Arrangements Homeless Household Members none Type of transporation used prior to Drives own vehicle admit Independent with ADL's Yes Is patient alert and oriented? Yes Caregiver for Another No Comment Patient will need resources for shelters, providers, possibly food stamps as well. Barriers to Discharge Yes Comment Patient is living in his car, and has no primary care provider. Discharge Plan Home Referrals Initiated None needed Additional Comment At this time. Further evaluation needed. Whiteboard Updated in Patient Room with Yes name and ext. # of As[employer] Trailer Review Status In Process Next Review Type Continued Stay Review
[2021-12-19] MEDS: ALPRAZolam 0.5 MG TABLET PO ×2 (09:39→17:59)
[2021-12-19] MEDS: HEPARIN 5,000 UNIT/ML VIAL 5000 UNIT SUBCUT ×2 (09:39→20:02)
[2021-12-19] MEDS: CELECOXIB 200 MG CAPSULE PO ×2 (09:39→20:02)
--- NOTE | 2021-12-19 11:00 | DI.RAD.S_ITS ---
PROCEDURE: XR CHEST 1V INDICATIONS: ptx TECHNIQUE: One view of the chest was acquired. COMPARISON: [facility], CT, CT CHEST W CON, 12/18/2021, 16:31. [facility], CR, XR CHEST 1V, 12/18/2021, 15:22. [facility], CR, XR CHEST 1V, 12/19/2021, 7:42. [facility], CR, XR CHEST 1V, 12/19/2021, 4:59. FINDINGS: Surgical changes and devices: Right chest tube has been repositioned or replaced, now projecting over the right mid lung. Lungs and pleura: Decrease in size of the right pneumothorax, now small-moderate, previously moderate-large. Approximately 4 centimeters pleural separation, previously 7.7 centimeters. Similar linear opacity at the right mid-upper lung. No pleural effusion. No left pneumothorax visualized. Mediastinum: Mediastinal contours appear normal. Heart size is normal. Bones and chest wall: No suspicious bony lesions. Overlying soft tissues appear unremarkable. IMPRESSION: Decrease in size of the right pneumothorax. Dictated by: Jenaro Stovall M.D. on 12/19/2021 at 13:59 Approved by: Jenaro Stovall M.D. on 12/19/2021 at 14:02
[2021-12-19 12:00] VITALS: BP 96/49; PULSE 48; RESP 18; TEMP 36.2
--- NOTE | 2021-12-19 13:01 | DIET.CONS ---
Dietary Consultation Note Admission Date: 12/18/2021 16:17 Assessment: 21y homeless M admitted for pneumothorax requiring chest tube placement screened by RD for surgeon order of Diet per Dietitian. Pt with tall, thin build high risk body composition garcia for pnumothorax. Pt with same presentation 1mo ago. Per social work, pt homeless living in vehicle with mom who within the past year. Since last admission pt applied for EBT (food stamps) and receives $250/mo. Pt reports this is not enough to get him through the month but very helpful nonetheless. Despite pts tall, thin build, pt with lower muscle mass than expected for age, arms rail thin. Adequate nutrition intake critical for pt who is still in high growth phase of life, suboptimal intake will negatively impact health status in the future. Ht: 187.96 cm Wt: 60.8 kg BMI: 17.2 Last BM: 12/16/21 (12/18/21 18:24) MNA: 7 Tr Score: 20 Diet: 12/18/21 Dinner General (Regular) Diet Diet Modifications: double protein, high pro smoothie tid 12/19/21 Breakfast Diet Per Dietitian May Advance Diet as Tolerated: Yes Safety Tray needed?: No Nutrition Percent Meal Consumed 75% 12/19/21 08:53 Nutrition Diagnosis: Moderate Acute on Chronic Malnutrition r/t food insecurity aeb pt BMI 17.2 c repeat pneumothorax and chest tube, pt homeless living in car, pt initiated EBT benefits over past month but still running out of food by end of the month, NFPE showing lower muscle mass than expected for age. Interventions: 1. Initiated double protein portions while hospitalized and high pro smoothies tid. 2. Created low cost, high protein shopping list for pt with items suitable for safely eating in car without cooking equipment. 3. Provided resource [employer] with free shopping coupon. Pt can volunteer 6h/mo and shop up to 3x/w without cost including clothing. 4. Recc multivitamin be added to pts med list so he can have insurance coverage to fill gap in micronutrient needs. EER: 2100kcals (35kcal/kg per PCM), 90g PRO (1.5g/kg per adolescent male PCM) Monitoring/Evaluations: POs, RD available prn for pt questions Electronically Signed by: Marialuisa Brooke 09/22/22 13:[address] [address]
--- NOTE | 2021-12-19 13:32 | PC.NURSE ---
Addendum entered by Ruiz Johnson R.N. 12/19/21 15:49: Correction; Pt was hypotensive, not hypertension. Original Note: Day Shift Pt has had a run of low Blood pressures this morning, 90/47 ,83/44, Dr Maxwell contacted. Verbal order given to do Bolus Normal Saline One Liter fluid, reassess blood pressure after bolus and if still hypertension, then ordered to follow up with Dr Locke for further direction.
[2021-12-19] MEDS: SODIUM CHLORIDE 0.9% 1,000 ML 1000 ML IV (13:52)
--- NOTE | 2021-12-19 18:59 | PC.NURSE ---
Day Shift Pt stood up to void, then laid back down and immediately complained of 10/10 pain at chest tube site, Chest tube seal intact, suction at 20, no drainage at site, Lung sounds have improved from this morning assessment, VS stable see documentation. Contacted MD, Per Dr Locke No chest xray needed, Pt VS WNL, Spo2 99% RA. Break thru dilaudid 0.5mg is to be ordered by MD.
[2021-12-19 19:00] VITALS: O2SAT 97
[2021-12-19 19:50] VITALS: BP 98/47; PULSE 64; RESP 16; TEMP 36.9; O2SAT 99
[2021-12-19] MEDS: GABAPENTIN 300 MG CAPSULE PO (20:02)
[2021-12-19] MEDS: HYDROMORPHONE 0.5 MG INJ IV (20:02)
[2021-12-20] VITALS (7 sets, daily range): BP systolic 93–108; BP diastolic 40–59; PULSE 48–59; RESP 15–16; TEMP 36.6–37.1; O2SAT 97–100
[2021-12-20] MEDS: OXYCODONE IR 5 MG TABLET PO ×5 (01:28→20:47)
--- NOTE | 2021-12-20 07:28 | PC.NURSE ---
Pt with right chest tube to continuous wall suction with 19 ml out. Drainage was serous last night and turned a light serosanguinous this am. Drsg intact. Pt c/o pain to chest tube site adequately controlled with [place] and one dose of Dilaudid o.5mg IV for breakthrough pain. Pt reports SOB with activity, lungs with faint inspiratory wheezes. BP this am 97/40 left lateral position. Pt stood at bedside to void and returned to bed, supine position, BP 108/59. Pt denies any dizziness.
[2021-12-20] MEDS: HEPARIN 5,000 UNIT/ML VIAL 5000 UNIT SUBCUT ×2 (08:08→20:47)
[2021-12-20] MEDS: CELECOXIB 200 MG CAPSULE PO ×2 (08:08→20:46)
[2021-12-20] MEDS: ALPRAZolam 0.5 MG TABLET PO ×2 (09:33→15:03)
[2021-12-20] MEDS: ACETAMINOPHEN 325 MG TABLET 650 MG PO (09:33)
--- NOTE | 2021-12-20 10:13 | PM.PN.1 ---
Subjective Subjective Date Patient Seen: 12/20/21 Time Patient Seen: 10:13 Interval history: 21-year-old man with spontaneous right pneumothorax chest tube in place. No significant overnight events. Exam Vital Signs (past 8 hours): - 12/20/21 04:39 12/20/21 04:50 12/20/21 07:00 Temperature 98.2 F Pulse Rate 48 L 49 L Respiratory Rate 15 Blood Pressure 97/40 L 108/59 L Pulse Oximetry 100 Oxygen Delivery Method Room Air Oxygen Flow Rate 0 12/20/21 07:00 Temperature Pulse Rate Respiratory Rate Blood Pressure Pulse Oximetry 100 Oxygen Delivery Method Room Air Oxygen Flow Rate Oxygen Delivery Method Room Air Oxygen Flow Rate 0 Narrative Exam Narrative: General adult male alert oriented no acute distress Chest nonlabored respiration. Right chest tube sites minimal output. Air leak noted . on suction. [facility] Medical History Depression Pneumothorax Social History household members: none Smoking Status: Current every day smoker alcohol intake: current Assessment & Plan Assessment and plan (1) Pneumothorax: Qualifiers: Pneumothorax type: spontaneous, tension Qualified Code(s): J93.0 - Spontaneous tension pneumothorax Status: Acute Assessment & Plan narrative: 21-year-old man with a spontaneous right pneumothorax. Chest tube in place has an air leak. Continue chest tube to low wall suction and reassess tomorrow. Time Spent With Patient Critical Care time: I spent a total of [] minutes of critical care time on this patient's care today; this time is exclusive of procedural time.
[2021-12-20] MEDS: GABAPENTIN 300 MG CAPSULE PO (20:47)
[2021-12-20] MEDS: NICOTINE 21 MG PATCH TOP (21:40)
[2021-12-20] MEDS: HYDROMORPHONE 0.5 MG INJ IV (21:47)
[2021-12-21 04:29] VITALS: BP 96/48; PULSE 65; RESP 16; TEMP 36.7; O2SAT 97
[2021-12-21 07:00] VITALS: O2SAT 97
[2021-12-21] MEDS: CELECOXIB 200 MG CAPSULE PO ×2 (08:17→20:06)
[2021-12-21] MEDS: HEPARIN 5,000 UNIT/ML VIAL 5000 UNIT SUBCUT (08:17)
[2021-12-21] MEDS: NICOTINE 21 MG PATCH TOP (08:17)
[2021-12-21] MEDS: OXYCODONE IR 5 MG TABLET PO (10:08)
--- NOTE | 2021-12-21 10:28 | DI.RAD.S_ITS ---
PROCEDURE: XR CHEST 1V INDICATIONS: chest tube TECHNIQUE: One view of the chest was acquired. COMPARISON: [facility], , XR CHEST 1V, 12/19/2021, 10:54. FINDINGS: Surgical changes and devices: Right pigtail catheter is again seen. Lungs and pleura: Right apical pneumothorax is unchanged. No focal consolidation or mass. Mediastinum: Mediastinal contours appear normal. Heart size is normal. Bones and chest wall: No suspicious bony lesions. Overlying soft tissues appear unremarkable. IMPRESSION: 1. Right pneumothorax unchanged. 2. Right pigtail catheter in unchanged position. Dictated by: Roland Berg M.D. on 12/21/2021 at 10:58 Approved by: Roland Berg M.D. on 12/21/2021 at 11:00
[2021-12-21] MEDS: ALPRAZolam 0.5 MG TABLET PO ×2 (10:32→21:17)
--- NOTE | 2021-12-21 10:50 | P.PN_ITS ---
Subjective Subjective Interval history: Mr. Hendrix injured denies any shortness of breath he says his pain is well controlled he mainly is complaining of feeling anxious. He says he has a lot of things going on and being in the hospital is really aggravating his anxiety. He is eating and drinking normally and has been out of bed but not walking in the halls Exam Vital Signs (past 8 hours): - 12/21/21 04:29 12/21/21 07:00 12/21/21 07:00 Temperature 98.1 F Pulse Rate 65 Respiratory Rate 16 Blood Pressure 96/48 L Pulse Oximetry 97 97 Oxygen Delivery Method Room Air Room Air Oxygen Flow Rate 0 Oxygen Delivery Method Room Air Oxygen Flow Rate 0 Narrative Exam Narrative: patient is awake alert oriented and in no acute distress The breathing is nonlabored and chest rise is equal bilaterally. The the chest tube is in place. I do not see an air leak today and have taken the chest tube off of suction and placed back to water seal. [facility] Medical History Depression Pneumothorax Social History household members: none Smoking Status: Current every day smoker alcohol intake: current Assessment & Plan Post-op Postoperative Procedures: Chest tube placed for spontaneous pneumothorax. Postoperative plan narrative: The patient does have some as needed Xanax ordered which she may receive for anxiety. He says his pain is controlled so I would continue his pain medications. He is on DVT prophylaxis. I advised that he walk around in the halls to help with the anxiety as well as general benefit. I have placed the chest tube to water seal and ordered a chest x-ray to check today. Time Spent With Patient Time with patient: less than 15 minutes
[2021-12-21 11:53] VITALS: BP 94/43; PULSE 59; RESP 17; TEMP 36.9; O2SAT 97
[2021-12-21 13:21] LABS: Hematocrit 42.5 % (41-53); Hemoglobin 14.5 g/dL (13.5-17.5); Mean Corpuscular HGB Conc 34.1 % (30-36); Mean Corpuscular Hemoglobin 30.4 PG (26-34); Platelet Count 217 X10^3/uL (150-400); Red Blood Cell Count 4.78 X10^6/uL (4.5-5.9); Red Cell Distribution Width 12.9 % (11.6-14.8); White Blood Cell Count 5.6 X10^3/uL (4.5-11.0)
--- NOTE | 2021-12-21 17:46 | PC.NURSE ---
Pt is AxOx4, independent and cooperative. VSS, pt c/o pain and recieved PRN Oxy 5mg once with good effect. Pt also c/o anxiety and recieved PRN Xanax with good effect. Pt refused to walk in the hallway as MD ordered. pt is eating very well and voiding. MD removed wall suctioning from chest tube so no it is only water sealed and gravity. Drainage is serosangounous and minimal. No other changes.
[2021-12-21 19:00] VITALS: O2SAT 100
[2021-12-21 19:40] VITALS: BP 114/65; PULSE 58; RESP 14; TEMP 36.7; O2SAT 100
[2021-12-21] MEDS: HYDROMORPHONE 0.5 MG INJ IV (20:06)
[2021-12-21] MEDS: GABAPENTIN 300 MG CAPSULE PO (20:06)
[2021-12-22 03:00] VITALS: BP 103/56; PULSE 63; RESP 16; TEMP 37.2; O2SAT 98
[2021-12-22 08:45] VITALS: O2SAT 99
[2021-12-22] MEDS: CELECOXIB 200 MG CAPSULE PO (09:24)
[2021-12-22] MEDS: NICOTINE 21 MG PATCH TOP (09:24)
[2021-12-22] MEDS: HEPARIN 5,000 UNIT/ML VIAL 5000 UNIT SUBCUT (09:24)
[2021-12-22] MEDS: OXYCODONE IR 5 MG TABLET PO (10:31)
[2021-12-22 10:56] VITALS: BP 106/58; PULSE 54; RESP 18; TEMP 36.8; O2SAT 99
--- NOTE | 2021-12-22 11:50 | DI.RAD.S_ITS ---
PROCEDURE: XR CHEST 1V INDICATIONS: pneumothorax f/u TECHNIQUE: One view of the chest was acquired. COMPARISON: [facility], , XR CHEST 1V, 12/21/2021, 10:37. FINDINGS: Surgical changes and devices: Right chest tube has been removed. Lungs and pleura: There is persistent although improved appearance of right apical pneumothorax now measuring 2.3 cm compared to 3.5 on prior exam. No midline shift. Mediastinum: Mediastinal contours appear normal. Heart size is normal. Bones and chest wall: No suspicious bony lesions. Overlying soft tissues appear unremarkable. IMPRESSION: Persistent, although decreased right apical pneumothorax. Dictated by: Josselyn Cerna M.D. on 12/22/2021 at 12:16 Approved by: Josselyn Cerna M.D. on 12/22/2021 at 12:17
--- NOTE | 2021-12-22 11:50 | PM.PNPO.1 ---
Subjective Subjective Date Patient Seen: 12/22/21 Interval history: Mr. Middleton is doing well today is not having any symptoms of shortness of breath cough. Anxiety is improved pain is well managed. Exam Vital Signs (past 8 hours): - 12/22/21 10:56 Temperature 98.2 F Pulse Rate 54 L Respiratory Rate 18 Blood Pressure 106/58 L Pulse Oximetry 99 Oxygen Flow Rate 0 Oxygen Delivery Method Room Air Oxygen Flow Rate 0 Narrative Exam Narrative: He is awake oriented appropriate in no acute distress. The chest tube is on water seal and has been overnight no further air leak is seen. It is sutured place. Chest rise is equal bilaterally. Objective Labs Result Diagrams: 12/21/21 13:15 Labs: Laboratory Results - last 24 hr 12/21/21 13:15 WBC 5.6 RBC 4.78 Hgb 14.5 Hct 42.5 MCV 89.0 MCH 30.4 MCHC 34.1 RDW 12.9 Plt Count 217 PFSH Medical History Depression Pneumothorax Social History household members: none Smoking Status: Current every day smoker alcohol intake: current Assessment & Plan Post-op Postoperative Postoperative status: doing well Postoperative status narrative: To day I will pull his chest tube and check an x-ray if the x-ray is unchanged and the patient is doing well he may be able to be discharged later today.
--- NOTE | 2021-12-22 13:47 | CM.DPNOTE ---
DC Note According to MILLIE Paulino, patient is now gone from his room; its possible that patient thought he was discharged and so walked out (?) This AWARD MACHINE OPERATOR had conversation w/surgeon Dr Nunez this morning; we discussed available resources for this patient and this AWARD MACHINE OPERATOR had suggested, time dependent, that a member from the CM team reiterate to patient the importance of following up M-F w/seamar to establish medical care and mental health support CM team will be available to this 21 yo patient to review these resources if he were to be admitted again to [facility]
--- NOTE | 2021-12-22 13:55 | PC.NURSE ---
1335 Pt left without d/c instructions review. It is very possible that it was a misunderstanding on his part. Pt was seen just before lunch by Enrique CHAKRABORTY who removed his chest tube, and x-ray was taken, and he was told he would be discharged after lunch. TELEPHONE QUOTATION CLERK notifed this RN that she saw the Pt in the parking lot when she transported the Pt in to his POV. Pt also removed his own IV which is evident in the garbage can. I attempted to contact the Pt via his cell phone which is the only contact number or name that we have for this Pt but there was no answer. A message was left requesting the Pt call the main RN station to receive discharge instructions and have any questions answered. Pt did not receive any discharge prescriptions however Dr. Nunez did discuss aftercare during the chest tube removal.
--- NOTE | 2021-12-22 14:02 | PM.DS.1 ---
History of Present Illness History of Present Illness Chief complaint: Hx collapsed lung 1mo ago, having similar symptoms Discharge Providers Provider Date of admission: 12/18/21 16:17 Discharge Date: 12/22/21 Primary care physician: Doctor Orlando MD Consults: 12/19/21 08:03 Consult to [employer] Product Development Manager Routine Comment: financial and possibly homeless Discharge provider: Carey Nunez MD Summary Hospital Course Discharge Diagnosis: recurrant spontaneous pneumothorax Hospital Course: Mr. Kahn presented to the emergency room with chest pain on 12/19/2021 found to have a recurrent pneumothorax. Chest tube was placed on the right and the patient was admitted. Over the next few hospital days the chest tube was managed and the pneumothorax remained stable. This morning I removed the chest tube and advised that if the chest x-ray looked fine and the patient was feeling well he may be discharged later in the day today 12/22/2021. Not sure if there was a miscommunication but the patient ended up leaving before the formal discharge order was placed he removed his own IV and walked out of the hospital. As a result I did not prescribe any medications upon discharge. He understands that he requires follow-up. Exam Vital Signs (past 8 hours): - 12/22/21 10:56 12/22/21 08:45 Temperature 98.2 F Pulse Rate 54 L Respiratory Rate 18 Blood Pressure 106/58 L Pulse Oximetry 99 99 Oxygen Delivery Method Room Air Oxygen Flow Rate 0 0 Oxygen Delivery Method Room Air Oxygen Flow Rate 0 Objective Labs Result Diagrams: 12/21/21 13:15 [facility] Medical History Depression Pneumothorax Social History household members: none Smoking Status: Current every day smoker alcohol intake: current Discharge Assessment & Plan Assessment and Plan Assessment: Multiple recurrent spontaneous pneumothoraxes, now resolved Plan of Treatment: Follow-up and recommendations discussed with patient. Discharge Plan Discharge Plan Patient Disposition: Home Discharge orders & Medications Prescriptions: No Action No Known Home Medications Diet/Activity/Treatments Diet: Diet as Tolerated and Regular Activity: Don't fly on airplanes for 2 weeks. Don't smoke. Return to ER if you have shortness of breath, severe cough or any other concerns. Get a PCP. Skin/Wound/Dressing Care Dressing: Tegederm and gauze. ok to remove tomorrow. Discharge Data Primary Care Provider: Miscellaneous,Doctor
== END 2021-12-22 14:02 | disposition home or self-care (01) | DRG 143 ==
LOC: ED 15:15 → AC 16:19
PROVIDERS: Admitting Provider Surgery; Emergency Provider Emergency Medicine; Referring Provider Emergency Medicine; Visit Provider Surgery
DX: J93.83 Other pneumothorax (principal); E44.0 Moderate protein-calorie malnutrition; Z68.1 Body mass index [BMI] 19.9 or less, adult; F41.9 Anxiety disorder, unspecified; F17.210 Nicotine dependence, cigarettes, uncomplicated; Z59.02 Unsheltered homelessness; Z59.41 Food insecurity; Z20.822 Contact with and (suspected) exposure to COVID-19
CPT/HCPCS: 32551; 36415; 71045; 71260; 85027; 87635; 93005; 93010; 96374; 96375; 99152; 99153; 99222; 99231; 99238; 99284; 99285; C9803; J1170; J1644; J2250; J3010; Q9967